=== PATIENT | female | born 1930 | race Caucasian/White ===

== ENCOUNTER 2018-01-09 13:04 | Inpatient (IN) | payer SELFPAY ==
[~2018-01-09] VITALS: Ht 152.4 cm; Wt 59.9 kg
[2018-01-09] MEDS ORDERED: ONDANSETRON HCL 4MG/2ML INJ IV STA (13:16)
[2018-01-09] MEDS ORDERED: KETOROLAC 30MG/ML VIAL IV STA (13:16)
[2018-01-09] MEDS ORDERED: SODIUM CHLORIDE 0.9% 1,000 ML IV ONE (13:16)
[2018-01-09 13:59] LABS: BASOPHILS % 0.2 % (0.0-2.0); EOSINOPHILS % 0.3 % (0.0-5.0); HEMATOCRIT. 46.5 % (36.0-48.0); HEMOGLOBIN. 15.6 g/dL (12.0-16.0); LYMPHOCYTES % 7.7 % (20.0-50.0); MEAN CORPUSCULAR HEMOGLOBIN 30.5 pg (28.0-32.0); MEAN CORPUSCULAR VOLUME 90.8 fL (81.0-99.0); MEAN PLATELET VOLUME 8.7 fl (7.4-10.4); MONOCYTES % 1.9 % (2.0-8.0); NEUTROPHILS % 89.9 % (40.0-76.0); PLATELET 184 x1000/uL (130-400); RED BLOOD CELL COUNT 5.12 mill/uL (4.2-5.4); RED CELL DISTRIBUTION WIDTH 12.4 % (11.6-14.6)
[2018-01-09 14:04] LABS: CHLORIDE 107 mEq/L (98-107)
[2018-01-09 14:06] LABS: PROTHROMBIN TIME 10.5 sec (9.1-11.1)
[2018-01-09] MEDS ORDERED: FENTANYL CITRATE/PF 50MCG/ML 2ML VIAL IV ONE (14:45)
[2018-01-09] MEDS ORDERED: PIPERACILLIN/TAZ 3.375G PREMIX 50 ML IV ONE (16:45)
[2018-01-09 19:05] LABS: CLARITY URINE CLOUDY (CLEAR); COLOR URINE YELLOW (YELLOW); KETONES URINE NEGATIVE (NEGATIVE); LEUKOCYTE ESTERASE URINE TRACE (NEGATIVE); NITRITE URINE POSITIVE (NEGATIVE); OCCULT BLOOD URINE 2+ (NEGATIVE); PROTEIN URINE NEGATIVE (NEGATIVE); SPECIFIC GRAVITY URINE 1.008 (1.005-1.030)
[2018-01-09] MEDS ORDERED: DEXTROSE 50% WATER 50ML SYRINGE IV PRN (19:15)
[2018-01-09] MEDS ORDERED: ACETAMINOPHEN 500MG TABLET PO PRN (19:15)
[2018-01-09 19:52] VITALS: BP 124/48
[2018-01-09 20:00] VITALS: BP 124/48
[2018-01-09] MEDS ORDERED: INFLUENZA VIRUS VACCINE(AFLURIA) 0.5ML SYR IM ONE (20:45)
[2018-01-09] MEDS ORDERED: PNEUMOCOCCAL 23-VAL P-SAC VAC 0.5 ML IM ONE (20:45)
[2018-01-09] MEDS ORDERED: CEFEPIME HCL 1000MG/VIAL INJ IM SCH (21:00)
[2018-01-09] MEDS: BLOOD SUGAR DIAGNOSTIC STRIP TEST SCH (21:00)
[2018-01-09] MEDS: INSULIN LISPRO 100 UNITS/ML SUBCUT SCH (21:00)
[2018-01-09] MEDS ORDERED: METRONIDAZOLE 500MG/100ML PREMIX IV SCH (22:00)
[2018-01-09] MEDS: CEFEPIME 2,000 MG in DEXT 5% WATER 100 ML IV SCH (22:09)
[2018-01-09] MEDS: METRONIDAZOLE 500 MG PREMIX 100 ML IV SCH (22:10)
[2018-01-09] MEDS: SODIUM CHLORIDE 0.9% 1,000 ML IV SCH (22:10)
[2018-01-10] VITALS: BP 127/45
[2018-01-10 04:00] VITALS: BP 132/40
[2018-01-10 06:10] LABS: HEMATOCRIT. 40.4 % (36.0-48.0); HEMOGLOBIN. 13.7 g/dL (12.0-16.0); MEAN CORPUSCULAR HEMOGLOBIN 30.5 pg (28.0-32.0); MEAN PLATELET VOLUME 9.1 fl (7.4-10.4); PLATELET 162 x1000/uL (130-400); RED BLOOD CELL COUNT 4.49 mill/uL (4.2-5.4); RED CELL DISTRIBUTION WIDTH 12.7 % (11.6-14.6)
[2018-01-10] MEDS: METRONIDAZOLE 500 MG PREMIX 100 ML IV SCH ×3 (06:44→22:37)
[2018-01-10] MEDS: BLOOD SUGAR DIAGNOSTIC STRIP TEST SCH ×4 (06:45→21:47)
[2018-01-10 07:13] LABS: CHLORIDE 112 mEq/L (98-107)
[2018-01-10] MEDS: INSULIN LISPRO 100 UNITS/ML SUBCUT SCH ×4 (07:37→22:23)
[2018-01-10 08:00] VITALS: BP 133/59
[2018-01-10] MEDS: CEFEPIME 2,000 MG in DEXT 5% WATER 100 ML IV SCH ×2 (08:39→21:42)
[2018-01-10] MEDS: SODIUM CHLORIDE 0.9% 1,000 ML IV SCH ×2 (08:39→21:43)
[2018-01-10] MEDS ORDERED: PNEUMOCOCCAL 23-VAL P-SAC VAC 0.5 ML IM ONE (09:00)
[2018-01-10] MEDS ORDERED: INFLUENZA VIRUS VACCINE(AFLURIA) 0.5ML SYR IM ONE (09:00)
[2018-01-10 12:00] VITALS: BP 144/44
[2018-01-10 14:32] LABS: PLATELET ESTIMATE NORMAL
[2018-01-10 16:00] VITALS: BP 155/47
[2018-01-10 20:00] VITALS: BP 133/59
[2018-01-11] VITALS: BP 132/48
[2018-01-11 04:00] VITALS: BP 155/46
[2018-01-11 07:14] LABS: BASOPHILS % 0.3 % (0.0-2.0); EOSINOPHILS % 0.7 % (0.0-5.0); HEMATOCRIT. 37.3 % (36.0-48.0); HEMOGLOBIN. 12.8 g/dL (12.0-16.0); LYMPHOCYTES % 8.9 % (20.0-50.0); MEAN CORPUSCULAR HEMOGLOBIN 30.9 pg (28.0-32.0); MEAN CORPUSCULAR VOLUME 90.4 fL (81.0-99.0); MEAN PLATELET VOLUME 9.5 fl (7.4-10.4); MONOCYTES % 6.7 % (2.0-8.0); NEUTROPHILS % 83.4 % (40.0-76.0); PLATELET 137 x1000/uL (130-400); RED BLOOD CELL COUNT 4.13 mill/uL (4.2-5.4); RED CELL DISTRIBUTION WIDTH 12.8 % (11.6-14.6)
[2018-01-11] MEDS: BLOOD SUGAR DIAGNOSTIC STRIP TEST SCH ×2 (07:20→12:05)
[2018-01-11] MEDS: METRONIDAZOLE 500 MG PREMIX 100 ML IV SCH (07:26)
[2018-01-11] MEDS: INSULIN LISPRO 100 UNITS/ML SUBCUT SCH ×2 (07:50→12:05)
[2018-01-11 08:00] VITALS: BP 138/75
[2018-01-11] MEDS: CEFEPIME 2,000 MG in DEXT 5% WATER 100 ML IV SCH (08:32)
[2018-01-11] MEDS: SODIUM CHLORIDE 0.9% 1,000 ML IV SCH (11:03)
[2018-01-11 11:32] LABS: CHLORIDE 110 mEq/L (98-107)
[2018-01-11 11:45] LABS: AMYLASE 136 IU/L (25-115)
[2018-01-11 12:00] VITALS: BP 158/53
[2018-01-11 12:16] VITALS: BP_SYST 143; BP_SYST 158; BP_DIAS 53; BP_DIAS 56
[2018-01-11] MEDS ORDERED: METRONIDAZOLE 500MG TABLET PO SCH (14:00)
[2018-01-11] MEDS ORDERED: AMOXICILLIN/POTASSIUM CLAVULANATE 875/125MG TAB PO SCH (21:00)
== END 2018-01-11 14:08 | disposition home or self-care (01) ==
LOC: ER 15:19 → 6EST 15:31 → EDBEDREQTM 15:34 → EDBEDREQ 15:34 → EDBEDREQSVC 15:34 → ENRESERV 16:42
PROVIDERS: ADMIT Emergency Medicine; ATTEND Emergency Medicine
DX: K80.00 Calculus of gallbladder with acute cholecystitis without obstruction (principal); E44.0 Moderate protein-calorie malnutrition; K85.10 Biliary acute pancreatitis without necrosis or infection; D72.819 Decreased white blood cell count, unspecified; E11.65 Type 2 diabetes mellitus with hyperglycemia; E87.6 Hypokalemia; I10 Essential (primary) hypertension; Z85.42 Personal history of malignant neoplasm of other parts of uterus; Z90.710 Acquired absence of both cervix and uterus; Z68.25 Body mass index [BMI] 25.0-25.9, adult; Z87.19 Personal history of other diseases of the digestive system
CPT/HCPCS: 36415; 74176; 74181; 76705; 82150; 82962; 90686; 90732; 93005; 96361; 96365; 96375; 99285; J0692; J1815; J1885; J2405; J2543; J3010; J3490; J7030; J7060